=== PATIENT | female | born 1975 | race Caucasian/White ===

== ENCOUNTER → 2020-10-24 | Outpatient (CLI) | payer OTHER ==
[~2020-10-24] VITALS: Ht 152.4 cm; Wt 86.2 kg
[~2020-10-24] MED LIST: ABILIFY 5 MG TAB5 MG PO; BENTYL 20MG TAB20 MG PO; DEPO-ESTRADIO5 MG/ML IM; DICYCLOMINE HCL10 MG PO; DITROPAN 5 MG TA5 MG PO; DULCOLAX STOOL100 MG PO; GABAPENTIN300 MG PO; HYDROXYZINE PAM25 MG PO; JARDIANCE25 MG PO; LAMICTAL TAB 1100 MG PO; LIPITOR TAB 1010 MG PO; LISINOPRIL2.5 MG PO; MAGNESIUM OXID250 MG PO; NITROFURANTOIN100 M1 PO; ONDANSETRON ODT4 MG SL; PROTONIX40 MG PO; SERTRALINE HCL50 MG PO; SYNTHROID88 MCG PO; TRESIBA FL100 UNIT/1 SC; VICTOZA 3-0.6 MG/0.1 SC; VITAMIN B-121000 MC3 PO; VITAMIN D250 MCG PO
== END ==
LOC: OPSV 06:46
DX: G35 Multiple sclerosis (principal)
CPT/HCPCS: 96365; 96366; 96375; J1200; J2350; J2930; J7030

== ENCOUNTER → 2020-11-28 | Outpatient (CLI) | payer OTHER ==
[2020-11-28 16:48] LABS: HEMOGLOBIN 13.7 gm/dl (12.3-15.3); RED BLOOD COUNT 5.6 M/UL (4.00-5.10); WHITE BLOOD COUNT 9.8 K/UL (4.5-11.0)
[2020-11-28 17:15] LABS: BUN/CREATININE RATIO 17 (0-10)
[2020-12-07 19:12] LABS: JCV ANTIBODY Positive (.)
== END ==
LOC: LAB 16:17
PROVIDERS: Nurse Practitioner Family
DX: G35 Multiple sclerosis (principal)
CPT/HCPCS: 80048; 85025

== ENCOUNTER → 2020-12-05 | Outpatient (CLI) | payer OTHER ==
[~2020-12-05] VITALS: Ht 124.5 cm; Wt 85.7 kg
[2020-12-05 08:45] LABS: HEMOGLOBIN 13.9 gm/dl (12.3-15.3); RED BLOOD COUNT 5.62 M/UL (4.00-5.10); WHITE BLOOD COUNT 11.3 K/UL (4.5-11.0)
[2020-12-05 09:05] LABS: BUN/CREATININE RATIO 20 (0-10)
[2020-12-13 19:12] LABS: JCV ANTIBODY Positive (.)
== END ==
LOC: OPSV 08:00
PROVIDERS: Nurse Practitioner Family
DX: G35 Multiple sclerosis (principal)
CPT/HCPCS: 36415; 80048; 85025; 96365; J2930; J7070

== ENCOUNTER → 2020-12-06 | Outpatient (CLI) | payer OTHER | LOC: OPSV 08:00 | DX: G35 Multiple sclerosis (principal) | CPT/HCPCS: 96365; J2930; J7070 ==

== ENCOUNTER 2020-12-07 09:10 | Observation (INO) | payer OTHER ==
[~2020-12-07] VITALS: Ht 149.9 cm; Wt 88.5 kg
[~2020-12-07 09:10] MED LIST changes: -ABILIFY 5 MG TAB5 MG PO; -DEPO-ESTRADIO5 MG/ML IM; -DICYCLOMINE HCL10 MG PO; -DITROPAN 5 MG TA5 MG PO; -DULCOLAX STOOL100 MG PO; -GABAPENTIN300 MG PO; -HYDROXYZINE PAM25 MG PO; -JARDIANCE25 MG PO; -LAMICTAL TAB 1100 MG PO; -LIPITOR TAB 1010 MG PO; -LISINOPRIL2.5 MG PO; -MAGNESIUM OXID250 MG PO; -NITROFURANTOIN100 M1 PO; -PROTONIX40 MG PO; -SERTRALINE HCL50 MG PO; -SYNTHROID88 MCG PO; -TRESIBA FL100 UNIT/1 SC; -VICTOZA 3-0.6 MG/0.1 SC; -VITAMIN B-121000 MC3 PO; -VITAMIN D250 MCG PO
[2020-12-07 10:40] LABS: HEMOGLOBIN 12.5 gm/dl (12.3-15.3); RED BLOOD COUNT 5.06 M/UL (4.00-5.10)
[2020-12-07 10:45] LABS: WHITE BLOOD COUNT 19.2 K/UL (4.5-11.0)
[2020-12-07 11:35] LABS: BUN/CREATININE RATIO 27 (0-10)
[2020-12-07] MEDS ORDERED: JARDIANCE25 MG PO (13:57)
[2020-12-07] MEDS ORDERED: DICYCLOMINE HCL10 MG PO (13:57)
[2020-12-07] MEDS ORDERED: GABAPENTIN300 MG PO (13:58)
[2020-12-07] MEDS ORDERED: DITROPAN 5 MG TA5 MG PO (13:59)
[2020-12-07] MEDS ORDERED: PROTONIX40 MG PO (13:59)
[2020-12-07] MEDS ORDERED: NITROFURANTOIN100 M1 PO (13:59)
[2020-12-07] MEDS ORDERED: HYDROXYZINE PAM25 MG PO (14:00)
[2020-12-07] MEDS ORDERED: TRESIBA FL100 UNIT/1 SC (14:00)
[2020-12-07] MEDS ORDERED: LAMICTAL TAB 1100 MG PO (14:00)
[2020-12-07] MEDS ORDERED: ABILIFY 5 MG TAB5 MG PO (14:01)
[2020-12-07] MEDS ORDERED: SERTRALINE HCL50 MG PO (14:01)
[2020-12-07] MEDS ORDERED: VICTOZA 3-0.6 MG/0.1 SC (14:01)
[2020-12-07] MEDS ORDERED: SYNTHROID88 MCG PO (14:02)
[2020-12-07] MEDS ORDERED: LISINOPRIL2.5 MG PO (14:02)
[2020-12-07] MEDS ORDERED: LIPITOR TAB 1010 MG PO (14:02)
[2020-12-07] MEDS ORDERED: VITAMIN D250 MCG PO (14:03)
[2020-12-07] MEDS ORDERED: MAGNESIUM OXID250 MG PO (14:03)
[2020-12-07] MEDS ORDERED: DULCOLAX STOOL100 MG PO (14:03)
[2020-12-07] MEDS ORDERED: VITAMIN B-121000 MC3 PO (14:04)
[2020-12-07] MEDS ORDERED: DEPO-ESTRADIO5 MG/ML IM (14:05)
== END 2020-12-07 17:08 | disposition home or self-care (01) ==
LOC: ER1 09:10 → CDU 12:40 → MED SURG 4 14:26
PROVIDERS: Emergency Medicine; ADMIT Internal Medicine Infectious Disease
DX: R07.89 Other chest pain (principal); F41.9 Anxiety disorder, unspecified; D72.828 Other elevated white blood cell count; T38.0X5A Adverse effect of glucocorticoids and synthetic analogues, initial encounter; G35 Multiple sclerosis; E11.9 Type 2 diabetes mellitus without complications; E03.9 Hypothyroidism, unspecified; E78.5 Hyperlipidemia, unspecified; F31.9 Bipolar disorder, unspecified; D50.9 Iron deficiency anemia, unspecified; Z20.822 Contact with and (suspected) exposure to COVID-19; Z88.5 Allergy status to narcotic agent; Z88.8 Allergy status to other drugs, medicaments and biological substances; Z79.899 Other long term (current) drug therapy; Z79.84 Long term (current) use of oral hypoglycemic drugs; Z79.52 Long term (current) use of systemic steroids
CPT/HCPCS: 71045; 80053; 82550; 82553; 83874; 84484; 84703; 85025; 85379; 93005; 99285; G0378; U0002

== ENCOUNTER → 2020-12-07 | Outpatient (CLI) | payer OTHER ==
[~2020-12-07] VITALS: Ht 152.4 cm; Wt 86.2 kg
== END ==
LOC: OPSV 08:00
DX: G35 Multiple sclerosis (principal)
CPT/HCPCS: G0463; J2930; J7070

== ENCOUNTER → 2020-12-18 | Outpatient (CLI) | payer OTHER ==
[~2020-12-18] VITALS: Ht 152.4 cm; Wt 86.2 kg
[~2020-12-18] MED LIST changes: +ABILIFY 5 MG TAB5 MG PO; +DEPO-ESTRADIO5 MG/ML IM; +DICYCLOMINE HCL10 MG PO; +DITROPAN 5 MG TA5 MG PO; +DULCOLAX STOOL100 MG PO; +GABAPENTIN300 MG PO; +HYDROXYZINE PAM25 MG PO; +JARDIANCE25 MG PO; +LAMICTAL TAB 1100 MG PO; +LIPITOR TAB 1010 MG PO; +LISINOPRIL2.5 MG PO; +MAGNESIUM OXID250 MG PO; +NITROFURANTOIN100 M1 PO; +PROTONIX40 MG PO; +SERTRALINE HCL50 MG PO; +SYNTHROID88 MCG PO; +TRESIBA FL100 UNIT/1 SC; +VICTOZA 3-0.6 MG/0.1 SC; +VITAMIN B-121000 MC3 PO; +VITAMIN D250 MCG PO
== END ==
LOC: OPSV 11:27
DX: G35 Multiple sclerosis (principal)
CPT/HCPCS: 96365; J2930; J7070

== ENCOUNTER → 2021-03-13 | Outpatient (CLI) | payer OTHER | LOC: SLEEP 13:18 | DX: G47.19 Other hypersomnia (principal) | CPT/HCPCS: 95810 ==

== ENCOUNTER → 2021-04-24 | Outpatient (CLI) | payer OTHER ==
[~2021-04-24] VITALS: Ht 152.4 cm; Wt 86.2 kg
== END ==
LOC: OPSV 07:00
DX: G35 Multiple sclerosis (principal)
CPT/HCPCS: 96360; 96367; 96375; 96413; 96415; J1200; J2350; J2930; J7030

== ENCOUNTER 2021-06-20 14:04 | Inpatient (IN) | payer OTHER ==
[~2021-06-20] VITALS: Ht 149.9 cm; Wt 90.3 kg
[2021-06-20 17:00] LABS: RED BLOOD COUNT 5.63 M/UL (4.00-5.10); WHITE BLOOD COUNT 16.7 K/UL (4.5-11.0)
[2021-06-20 17:26] LABS: BUN/CREATININE RATIO 18 (0-10)
[2021-06-21] MEDS ORDERED: FAMOTIDINE20 MG PO (11:06)
[2021-06-21] MEDS ORDERED: IRON18 MG PO (11:07)
[2021-06-21 14:49] LABS: HEMOGLOBIN 15.8 gm/dl (12.3-15.3); RED BLOOD COUNT 5.3 M/UL (4.00-5.10)
[2021-06-21 14:58] LABS: WHITE BLOOD COUNT 21.5 K/UL (4.5-11.0)
[2021-06-21 15:16] LABS: BUN/CREATININE RATIO 21 (0-10)
[2021-06-22 03:53] LABS: HEMOGLOBIN 14.3 gm/dl (12.3-15.3); RED BLOOD COUNT 4.88 M/UL (4.00-5.10); WHITE BLOOD COUNT 24.9 K/UL (4.5-11.0)
[2021-06-22 04:26] LABS: BUN/CREATININE RATIO 19 (0-10)
[2021-06-23 05:05] LABS: HEMOGLOBIN 14.3 gm/dl (12.3-15.3); RED BLOOD COUNT 4.87 M/UL (4.00-5.10)
[2021-06-23 05:10] LABS: WHITE BLOOD COUNT 15.6 K/UL (4.5-11.0)
[2021-06-23 05:21] LABS: BUN/CREATININE RATIO 23 (0-10)
--- NOTE | 2021-06-23 09:57 | NUR ---
PATIENT HAD A GLUCOSE OF 69 THIS MORNING, PATIENT HAD NOT EAT ANYTING AND WANTED ME TO COME BACK AND RECHECK GLUCOSE AFTER SHE ATE. MD AWARE. RECHECKED GLUCOSE AND IT WAS 140.
[2021-06-24 03:29] LABS: HEMOGLOBIN 14.3 gm/dl (12.3-15.3); RED BLOOD COUNT 4.86 M/UL (4.00-5.10)
[2021-06-24 03:36] LABS: WHITE BLOOD COUNT 11.3 K/UL (4.5-11.0)
[2021-06-24 03:50] LABS: BUN/CREATININE RATIO 17 (0-10)
[2021-06-24] MEDS ORDERED: PREDNISONE2.5 MG PO (15:09)
[2021-06-24] MEDS ORDERED: BACTRIM DS TAB1 EACH PO (15:09)
== END 2021-06-24 16:53 | disposition home or self-care (01) | DRG 871 ==
LOC: ER1 14:04 → CDU 06-21 03:28 → M/S 06-21 15:18
PROVIDERS: Physician Assistant; Physician Assistant Medical; ADMIT Internal Medicine
DX: A41.9 Sepsis, unspecified organism (principal); J96.01 Acute respiratory failure with hypoxia; L03.211 Cellulitis of face; E27.40 Unspecified adrenocortical insufficiency; Z20.822 Contact with and (suspected) exposure to COVID-19; G35 Multiple sclerosis; R53.83 Other fatigue; I10 Essential (primary) hypertension; E03.9 Hypothyroidism, unspecified; H92.01 Otalgia, right ear; R63.4 Abnormal weight loss; J45.909 Unspecified asthma, uncomplicated; E11.9 Type 2 diabetes mellitus without complications; G47.33 Obstructive sleep apnea (adult) (pediatric); R00.0 Tachycardia, unspecified; E66.9 Obesity, unspecified; Z79.899 Other long term (current) drug therapy; Z79.52 Long term (current) use of systemic steroids; Z82.49 Family history of ischemic heart disease and other diseases of the circulatory system; Z88.8 Allergy status to other drugs, medicaments and biological substances; Z90.49 Acquired absence of other specified parts of digestive tract; Z98.49 Cataract extraction status, unspecified eye; Z98.890 Other specified postprocedural states; Z99.81 Dependence on supplemental oxygen
CPT/HCPCS: ECHO; 36415; 70450; 71045; 80048; 80053; 80202; 82024; 82533; 82962; 83605; 83735; 84439; 84443; 84703; 85025; 85027; 85652; 86140; 87040; 93306; 96374; 99285; G0378; J0834; J1650; J1720; J2543; J2930; J3370; J7070; Q0177; Q9967

== ENCOUNTER → 2021-09-07 | Outpatient (CLI) | payer OTHER ==
[~2021-09-07] MED LIST changes: +BACTRIM DS TAB1 EACH PO; +FAMOTIDINE20 MG PO; +IRON18 MG PO; +PREDNISONE2.5 MG PO
== END ==
LOC: KOH-I 08:41
DX: R94.5 Abnormal results of liver function studies (principal); N13.30 Unspecified hydronephrosis; Z90.49 Acquired absence of other specified parts of digestive tract; K76.0 Fatty (change of) liver, not elsewhere classified
CPT/HCPCS: 76705

== ENCOUNTER → 2021-11-01 | Outpatient (CLI) | payer OTHER ==
[~2021-11-01] VITALS: Ht 152.4 cm; Wt 86.2 kg
== END ==
LOC: OPSV 09:00
DX: G35 Multiple sclerosis (principal)
CPT/HCPCS: 96361; 96375; 96413; 96415; J1200; J1720; J2350; J2930; J7030

== ENCOUNTER 2022-02-22 13:09 | Emergency (ER) | payer OTHER ==
[2022-02-22 14:27] LABS: HEMOGLOBIN 16.3 gm/dl (12.3-15.3); RED BLOOD COUNT 5.5 M/UL (4.00-5.10); WHITE BLOOD COUNT 10.6 K/UL (4.5-11.0)
[2022-02-22 14:53] LABS: BUN/CREATININE RATIO 11 (0-10)
== END 2022-02-22 17:00 | disposition home or self-care (01) ==
LOC: ER1 13:09
PROVIDERS: Nurse Practitioner
DX: R53.83 Other fatigue (principal); E11.9 Type 2 diabetes mellitus without complications; Z88.8 Allergy status to other drugs, medicaments and biological substances
CPT/HCPCS: 80053; 81001; 84703; 85025; 87086; 93005; 96361; 96374; 99285; J2930